=== PATIENT | female | born 1965 | race African-American/Black ===

== ENCOUNTER 2019-04-13 08:50 | Emergency (ER) | payer SELFPAY ==
[~2019-04-13] VITALS: Ht 180.3 cm; Wt 105.0 kg
[2019-04-13] MEDS ORDERED: KETOROLAC 30MG/ML VIAL IM ONE (09:45)
[2019-04-13 09:52] VITALS: BP 167/101
== END 2019-04-13 11:18 | disposition home or self-care (01) ==
LOC: ER 08:50
DX: M25.561 Pain in right knee (principal); F17.210 Nicotine dependence, cigarettes, uncomplicated; Z90.81 Acquired absence of spleen; V19.9XXA Pedal cyclist (driver) (passenger) injured in unspecified traffic accident, initial encounter; Y93.89 Activity, other specified; Y92.488 Other paved roadways as the place of occurrence of the external cause
CPT/HCPCS: 73562; 96372; 99283; J1885